=== PATIENT | female | born 1975 | race Caucasian/White ===

== ENCOUNTER 2017-02-21 08:08 | Emergency (ER) | payer SELFPAY ==
[~2017-02-21] VITALS: Ht 162.6 cm; Wt 97.5 kg
[2017-02-21 08:16] VITALS: BP 184/86
--- NOTE | 2017-02-21 08:41 | RAD ---
Indication: Elbow pain for one week, no known injury. Technique: 3 views of the right elbow are submitted for review. No comparison is available. Findings: There is no fracture or dislocation. There is no displacement of fat pads/joint effusion. There is no soft tissue swelling. Impression: Negative for fracture. If further workup is required or if the concern is for impingement, consider MRI.
[2017-02-21] MEDS ORDERED: MELO7.5T5 PO (09:08)
--- NOTE | 2017-02-21 09:16 | PHYS DOC ---
Past Medical History Past Medical History: GERD Past Surgical History: Appendectomy, Cholecystectomy, Tonsillectomy, Tubal ligation Alcohol Use: Occasionally Drug Use: None Adult General Chief Complaint Chief Complaint: UPPER EXTREMITY PAIN HPI HPI Patient is a 41 year old female who presents with right elbow pain. Patient states that she does not have any known injury. She does use her elbow at work with constant motion. She denies swelling, redness or signs of infection. She has taken some ibuprofen and Tylenol but it has not resolved. Review of Systems Review of Systems Constitutional: Denies fever or chills [] Respiratory: Denies cough or shortness of breath [] Cardiovascular: No additional information not addressed in HPI [] Musculoskeletal: Denies back pain or joint pain [] Integument: Denies rash or skin lesions [] Neurologic: Denies headache, focal weakness or sensory changes [] Endocrine: Denies polyuria or polydipsia [] All other systems were reviewed and found to be within normal limits, except as documented in this note. Allergies Allergies Allergies Coded Allergies Type Severity Reaction Last Updated Verified No Known Drug Allergies 02/10/15 No Physical Exam Physical Exam Constitutional: Well developed, well nourished, no acute distress, non-toxic appearance. [] Cardiovascular:Heart rate regular rhythm, no murmur [] Lungs & Thorax: Bilateral breath sounds clear to auscultation [] Skin: Warm, dry, no erythema, no rash. [] Back: No tenderness, no CVA tenderness. [] Extremities: Tenderness to right elbow, no cyanosis, no clubbing, ROM slightly limited due to pain to extension only, no edema, cyanosis and sensation are intact distally. [] Neurologic: Alert and oriented X 3, normal motor function, normal sensory function, no focal deficits noted. [] Psychologic: Affect normal, judgement normal, mood normal. [] Current Patient Data Vital Signs Vital Signs Date Time Temp Pulse Resp B/P (MAP) Pulse Ox O2 Delivery O2 Flow Rate FiO2 02/21/17 08:16 97.8 87 18 97 Room Air 97.8 EKG EKG [] Radiology/Procedures Radiology/Procedures []PATIENT: ANA MCALLISTER ACCOUNT: [id number] : 1975 LOCATION: ER AGE: 41 SEX: F EXAM STATUS: REG ER ORD. PHYSICIAN: ANNE MARIE CASTILLO APRN REASON: pain x 1 week, no known injury PROCEDURE: ELBOW RIGHT 3V Indication: Elbow pain for one week, no known injury. Technique: 3 views of the right elbow are submitted for review. No comparison is available. Findings: There is no fracture or dislocation. There is no displacement of fat pads/joint effusion. There is no soft tissue swelling. Impression: Negative for fracture. If further workup is required or if the concern is for impingement, consider MRI. DICTATED and SIGNED BY: KENA RUTLEDGE MD DATE: 02/21/17 0836 CC: ANNE MARIE CASTILLO APRN; NO PCP; NON,STAFF ~ Course & Med Decision Making Course & Med Decision Making Pertinent Labs and Imaging studies reviewed. (See chart for details) []1. Elbow pain Patient is been placed in an Juanito wrap. She was given instructions for epicondylitis. She has been placed on a prescription for Mobitz. She is to follow-up with PCP of her own choosing, return to the ED if worsening. Dragon Disclaimer Dragon Disclaimer This electronic medical record was generated, in whole or in part, using a voice recognition dictation system. Departure Departure Impression: Primary Impression: Right elbow pain Disposition: 01 HOME, SELF-CARE Condition: STABLE Patient Instructions: Epicondylitis, Lateral (Tennis Elbow) with Rehab- [facility] Additional Instructions: Please choose a primary care provider from the flyer provided to make an appointment for a follow-up in one week. Take the medication as directed. Please return to the ED if worsening. Scripts Meloxicam (MOBIC) 7.5 Mg Tablet 1 TAB PO DAILY, #30 TAB 1 Refill Prov: ANNE MARIE CASTILLO APRN 02/21/17 ANNE MARIE CASTILLO APRN Feb 21, 2017 09:16
== END 2017-02-21 09:00 | disposition home or self-care (01) ==
LOC: ER 08:08
DX: M25.521 Pain in right elbow (principal); K21.9 Gastro-esophageal reflux disease without esophagitis; Z90.49 Acquired absence of other specified parts of digestive tract
CPT/HCPCS: 73080; 99284

== ENCOUNTER 2018-02-23 18:38 | Emergency (ER) | payer SELFPAY ==
[~2018-02-23] VITALS: Ht 162.6 cm; Wt 106.6 kg
[~2018-02-23 18:38] MED LIST: MELO7.5T5 PO
[2018-02-23] MEDS ORDERED: MORPHINE SULFATE 4 MG/ML VIAL. IV ONE (19:00)
[2018-02-23] MEDS ORDERED: ASPIRIN CHEWABLE 81 MG TABLET. PO ONE (19:00)
[2018-02-23 19:02] LABS: BASO # 0.1 x10^3/uL (0.0-0.2); BASO % 1 % (0-3); EOS # 0.4 x10^3/uL (0.0-0.7); EOS % 3 % (0-3); HEMATOCRIT 38.5 % (36.0-47.0); HEMOGLOBIN 13.1 g/dL (12.0-15.5); LYMPH # 2.4 x10^3/uL (1.0-4.8); LYMPH % 20 % (24-48); MEAN CORPUSCULAR HEMOGLOBIN 28 pg (25-35); MEAN CORPUSCULAR HGB CONC 34 g/dL (31-37); MEAN CORPUSCULAR VOLUME 83 fL (79-100); MONO # 0.8 x10^3/uL (0.0-1.1); MONO % 7 % (0-9); NEUT # 8.1 x10^3uL (1.8-7.7); NEUT % 69 % (31-73); PLATELET COUNT 251 x10^3/uL (140-400); RED BLOOD COUNT 4.66 x10^6/uL (3.50-5.40); RED CELL DISTRIBUTION WIDTH 16.2 % (11.5-14.5); WHITE BLOOD COUNT 11.7 x10^3/uL (4.0-11.0)
[2018-02-23 19:12] LABS: CALCIUM 9.3 mg/dL (8.5-10.1); CREATININE 0.9 mg/dL (0.6-1.0); GFR 68.3; POTASSIUM 3.5 mmol/L (3.5-5.1)
--- NOTE | 2018-02-23 19:13 | RAD ---
PORTABLE CHEST 1V History: Mid sternal chest pain radiating to the right arm and neck, hypertension Comparison: None. Findings: There is no lobar infiltrate, pleural fluid, pneumothorax. Heart size is within normal limits given technique. Impression: 1. No acute radiographic abnormality is identified. Electronically signed by: Aníbal Hernandez MD (02/23/2018 7:09 PM) [facility]
[2018-02-23 19:34] LABS: PARTIAL THROMBOPLASTIN TIME 31 SEC (24-38); PROTHROMBIN TIME PATIENT 13.1 SEC (11.7-14.0)
[2018-02-23 19:37] LABS: D-DIMER < 0.27 ug/mlFEU (0.00-0.50)
[2018-02-23] MEDS ORDERED: IPRATRPIUM/ALBUTEROL 0.5/2.5MG 3 ML NEBU. ONE (20:11)
--- NOTE | 2018-02-23 20:11 | PHYS DOC ---
Past Medical History Past Medical History: GERD Past Surgical History: Appendectomy, Cholecystectomy, Tonsillectomy, Tubal ligation Alcohol Use: Occasionally Drug Use: None Adult General Chief Complaint Chief Complaint: CHEST PAIN HPI HPI Patient is a 42 year old female who presents with chest pain. Patient has been having chest pain over the last 2 weeks. The pain is been constant but has waxed and waned in intensity. She states the pain is somewhat improved when she lies flat. She has mild shortness of breath associated with the pain. Pain is nonradiating. She does not have a personal history of coronary artery disease but does have significant family history including in her father, older brother , and younger brother. The patient has a [id number] history of tobacco abuse. She denies prior history of respiratory or lung diagnoses. She came to the emergency department today because the pain became more severe and lasted longer compared to last 2 weeks. Review of Systems Review of Systems Constitutional: Denies fever or chills [] Eyes: Denies change in visual acuity, redness, or eye pain [] HENT: Denies nasal congestion or sore throat [] Respiratory: Denies cough or shortness of breath [] Cardiovascular: No additional information not addressed in HPI [] GI: Denies abdominal pain, nausea, vomiting, bloody stools or diarrhea [] : Denies dysuria or hematuria [] Musculoskeletal: Denies back pain or joint pain [] Integument: Denies rash or skin lesions [] Neurologic: Denies headache, focal weakness or sensory changes [] Endocrine: Denies polyuria or polydipsia [] All other systems were reviewed and found to be within normal limits, except as documented in this note. Current Medications Current Medications Current Medications Medications (Trade) Dose Ordered Sig/Kathy Start Time Stop Time Status Last Admin Dose Admin Albuterol/ Ipratropium (Duoneb) 3 ml STK-MED ONCE 02/23/18 20:11 02/23/18 20:13 DC Aspirin (Children'S Aspirin) 324 mg 1X ONCE 02/23/18 19:00 02/23/18 19:01 DC 02/23/18 19:06 324 MG Morphine Sulfate (Morphine Sulfate) 4 mg 1X ONCE 02/23/18 19:00 02/23/18 19:01 DC 02/23/18 19:06 4 MG Prednisone (Prednisone) 60 mg 1X ONCE 02/23/18 20:15 02/23/18 20:16 DC 02/23/18 20:18 60 MG Allergies Allergies Allergies Coded Allergies Type Severity Reaction Last Updated Verified No Known Drug Allergies 02/23/18 No Physical Exam Physical Exam Constitutional: Well developed, well nourished, no acute distress, non-toxic appearance HENT: Normocephalic, atraumatic, bilateral external ears normal, oropharynx moist Eyes: PERRLA, EOMI, conjunctiva normal Neck: Normal range of motion Cardiovascular:Heart rate regular rhythm, no murmur Lungs & Thorax: Bilateral breath sounds with wheezes bilaterally and mildly prolonged expiratory phase Abdomen: Bowel sounds normal, soft, no tenderness Skin: Warm, dry Back: No tenderness Extremities: No tenderness, no edema Neurologic: Alert and oriented X 3 Psychologic: Affect normal Current Patient Data Vital Signs Vital Signs Date Time Temp Pulse Resp B/P (MAP) Pulse Ox O2 Delivery O2 Flow Rate FiO2 02/23/18 20:17 98 Room Air 02/23/18 20:15 64 13 108/51 (70) 02/23/18 18:40 98.5 98.5 Lab Values Laboratory Tests Test 02/23/18 18:48 White Blood Count 11.7 x10^3/uL (4.0-11.0) H Red Blood Count 4.66 x10^6/uL (3.50-5.40) Hemoglobin 13.1 g/dL (12.0-15.5) Hematocrit 38.5 % (36.0-47.0) Mean Corpuscular Volume 83 fL (79-100) Mean Corpuscular Hemoglobin 28 pg (25-35) Mean Corpuscular Hemoglobin Concent 34 g/dL (31-37) Red Cell Distribution Width 16.2 % (11.5-14.5) H Platelet Count 251 x10^3/uL (140-400) Neutrophils (%) (Auto) 69 % (31-73) Lymphocytes (%) (Auto) 20 % (24-48) L Monocytes (%) (Auto) 7 % (0-9) Eosinophils (%) (Auto) 3 % (0-3) Basophils (%) (Auto) 1 % (0-3) Neutrophils # (Auto) 8.1 x10^3uL (1.8-7.7) H Lymphocytes # (Auto) 2.4 x10^3/uL (1.0-4.8) Monocytes # (Auto) 0.8 x10^3/uL (0.0-1.1) Eosinophils # (Auto) 0.4 x10^3/uL (0.0-0.7) Basophils # (Auto) 0.1 x10^3/uL (0.0-0.2) Prothrombin Time 13.1 SEC (11.7-14.0) Prothrombin Time INR 1.0 (0.8-1.1) PTT 31 SEC (24-38) D-Dimer (Damaris) < 0.27 ug/mlFEU Sodium Level 140 mmol/L (136-145) Potassium Level 3.5 mmol/L (3.5-5.1) Chloride Level 101 mmol/L (98-107) Carbon Dioxide Level 29 mmol/L (21-32) Anion Gap 10 (6-14) Blood Urea Nitrogen 9 mg/dL (7-20) Creatinine 0.9 mg/dL (0.6-1.0) Estimated GFR (Cockcroft-Gault) 68.3 Glucose Level 215 mg/dL (70-99) H Calcium Level 9.3 mg/dL (8.5-10.1) Troponin I Quantitative < 0.017 ng/mL (0.000-0.055) NE-Txo-T-Type Natriuretic Peptide 68 pg/mL (0-124) Laboratory Tests 02/23/18 18:48 Laboratory Tests 02/23/18 18:48 EKG EKG No STEMI Interpretation Time: 18:45 Radiology/Procedures Radiology/Procedures CXR: No acute findings. Course & Med Decision Making Course & Med Decision Making Pertinent Labs and Imaging studies reviewed. (See chart for details) Patient is seen and examined immediately on arrival to her room. She is currently having mild chest pain symptoms. She is noted to have wheezes in all espinoza during the exam but no increased work of breathing. DuoNeb is ordered along with cardiac workup. HEART: - slightly suspicious (0) - EKG normal: (0) - obesity, smoker, family hx, (2) - troponin normal limit: (0) Total score: 2. 20:40: Patient is re-examined. Pain sx improved. Duoneb pending. 20:50: Lungs are clear. Patient is feeling improved. Plan is for discharge home. She has been having pain for 3 weeks. Her heart score is only 2. She is provided the follow-up information for cardiology locally and advised follow-up as needed or return to the ER for any new or worsening symptoms. Ting Disclaimer Ting Disclaimer This electronic medical record was generated, in whole or in part, using a voice recognition dictation system. Departure Departure Disposition: HOME, SELF-CARE Condition: GOOD Referrals: NO PCP (PCP) Scripts Albuterol Sulfate (PROAIR HFA INHALER) 8.5 Gm Hfa.aer.ad 2 PUFF INH Q4H PRN for SHORTNESS OF BREATH, #1 INHALER 0 Refills Prov: LOPEZ BURNETT DO 02/23/18 Prednisone (PREDNISONE) 50 Mg Tablet 1 TAB PO DAILY, #5 TAB Prov: LOPEZ BURNETT DO 02/23/18 LOPEZ BURNETT DO Feb 23, 2018 20:11
[2018-02-23] MEDS ORDERED: predniSONE 20 MG TABLET PO ONE (20:15)
[2018-02-23] MEDS ORDERED: IPRATRPIUM/ALBUTEROL 0.5/2.5MG 3 ML NEBU. NEB ONE (20:15)
[2018-02-23] MEDS ORDERED: PROAIR HFA8.5 GM INH (20:54)
[2018-02-23] MEDS ORDERED: PRED50TA PO (20:54)
[2018-02-23 21:02] VITALS: BP 116/56
--- NOTE | 2018-02-24 07:37 | EKG ---
[facility] [address] [place] [address] Test Date: 2018-02-23 Test Time: 18:43:15 Pat Name: ANA MCALLISTER Department: Room: Gender: F Tile Layer Helper: : 1975 Requested By: LOPEZ BURNETT Order Number: [id number] Reading MD: Measurements Intervals [place] Rate: 96 P: 43 IN: 178 QRS: 65 QRSD: 78 T: 18 QT: 332 QTc: 426 Interpretive Statements SINUS RHYTHM NORMAL ECG RI6.01 No previous ECG available for comparison
== END 2018-02-23 21:09 | disposition home or self-care (01) ==
LOC: ER 18:38
DX: R07.89 Other chest pain (principal); R06.02 Shortness of breath; R06.2 Wheezing; K21.9 Gastro-esophageal reflux disease without esophagitis; Z90.89 Acquired absence of other organs; Z90.49 Acquired absence of other specified parts of digestive tract; Z98.51 Tubal ligation status; Z87.891 Personal history of nicotine dependence
CPT/HCPCS: 36415; 71045; 80048; 83880; 84484; 85025; 85379; 85610; 85730; 93005; 94640; 96374; 99284; J2270; J7512; J7620

== ENCOUNTER 2019-05-02 17:49 | Emergency (ER) | payer BC ==
[~2019-05-02] VITALS: Ht 162.6 cm; Wt 95.4 kg
[~2019-05-02 17:49] MED LIST changes: +ALBU2.5V8 INH; +PRED50TA PO
--- NOTE | 2019-05-02 19:16 | RAD ---
PROCEDURE: FOOT RIGHT 3V STUDY DATE: 05/02/19 CLINICAL INDICATION / HISTORY: pain. TECHNIQUE: AP, lateral and oblique views of the right foot. COMPARISON: none FINDINGS: No fracture or dislocation is identified. The bone density is normal. The joint space widths are maintained, and there are no erosions to suggest an inflammatory arthropathy. No soft tissue abnormality is seen. IMPRESSION: No acute osseous abnormality. Electronically signed by: Lisa John MD (05/02/2019 7:13 PM) [facility]
--- NOTE | 2019-05-02 19:22 | PHYS DOC ---
Past Medical History Past Medical History: GERD (TRENT BUSH APRN) Past Surgical History: Appendectomy, Cholecystectomy, Tonsillectomy, Tubal ligation (TRENT BUSH APRN) Smoking Status: Current Every Day Smoker Alcohol Use: Occasionally Drug Use: None (TRENT BUSH APRN) Attending Signature I have participated in the care of this patient and I have reviewed and agree with all pertinent clinical information above including history, exam, and recommendations. (RANJITH SARAVIA MD) Adult General Chief Complaint Chief Complaint: FOOT INJURY PAIN HPI HPI Patient is a 43 year old female, accompanied by a friend, who presents to the emergency department with complaints of swelling and pain in her right foot or the last 3 days. Patient denies any known injury, she denies any recent fall or twisting of the extremity. She reports that the pain increases with weightbearing. Patient states that she stands on her feet all day at work. She reports that she has been able to bear weight, however that increases her pain. She denies any numbness, tingling, or weakness of the affected extremity. She denies any pain at rest. She states that the pain shoots to 8 out of 10 when she stands, the only thing that has helped the pain is to not bear weight. (TRENT BUSH APRN) Review of Systems Review of Systems Complete ROS is negative unless otherwise noted in HPI. (TRENT BUSH APRN) Allergies Allergies Allergies Coded Allergies Type Severity Reaction Last Updated Verified No Known Drug Allergies 02/23/18 No (RANJITH SARAVIA MD) Physical Exam Physical Exam See Above Constitutional: Well developed, well nourished, no acute distress, non-toxic appearance. [] HENT: Normocephalic, atraumatic, bilateral external ears normal, nose normal. [] Eyes: PERRLA, EOMI, conjunctiva normal, no discharge. [] Neck: Normal range of motion, no stridor. [] Cardiovascular:Heart rate regular rhythm Lungs & Thorax: Respirations even and unlabored, no retractions, no respiratory distress Skin: Warm, dry, no erythema, no rash. Extremities: RLE: No crepitus, R posterior foot TTP, no obvious deformity, no cyanosis, no clubbing, ROM intact, no edema, PMS intact. [] Neurologic: Alert and oriented X 3, no focal deficits noted. [] Psychologic: Affect normal, judgement normal, mood normal. [] (TRENT BUSH APRN) Current Patient Data Vital Signs Vital Signs Date Time Temp Pulse Resp B/P (MAP) Pulse Ox O2 Delivery O2 Flow Rate FiO2 05/02/19 18:31 98.3 81 18 168/89 (115) 96 Room Air 98.3 (RANJITH SARAVIA MD) EKG EKG [] (TRENT BUSH APRN) Radiology/Procedures Radiology/Procedures PROCEDURE: FOOT RIGHT 3V PROCEDURE: FOOT RIGHT 3V STUDY DATE: 05/02/19 CLINICAL INDICATION / HISTORY: pain. TECHNIQUE: AP, lateral and oblique views of the right foot. COMPARISON: none FINDINGS: No fracture or dislocation is identified. The bone density is normal. The joint space widths are maintained, and there are no erosions to suggest an inflammatory arthropathy. No soft tissue abnormality is seen. IMPRESSION: No acute osseous abnormality.[] (TRENT BUSH APRN) Course & Med Decision Making Course & Med Decision Making Pertinent Labs and Imaging studies reviewed. (See chart for details) [] (TRENT BUSH APRN) Dragon Disclaimer Dragon Disclaimer This electronic medical record was generated, in whole or in part, using a voice recognition dictation system. (TRENT BUSH APRN) Departure Departure Impression: Primary Impression: Acute pain of right foot Disposition: 01 HOME, SELF-CARE Condition: STABLE Referrals: NO PCP (PCP) Patient Instructions: Foot Sprain-Brief Additional Instructions: Tylenol or ibuprofen as needed for pain. Recommend application of ice, elevation, and rest of affected extremity. Wear the vani wrap that was applied as needed for comfort. Follow up with your primary care doctor if symptoms persist, return to the ER if your symptoms worsen. Splinting Splinting : Location: R ankle/foot Pre-Made Type: vani wrap Pre-Proc Neuro Vasc Exam: normal Post-Proc Neuro Vasc Exam: normal, unchanged from pre-exam (TRENT BUSH APRN) TRENT BUSH APRN May 02, 2019 19:22 RANJITH SARAVIA MD May 04, 2019 05:36
== END 2019-05-02 19:49 | disposition home or self-care (01) ==
LOC: ER 17:49
DX: M79.671 Pain in right foot (principal); K21.9 Gastro-esophageal reflux disease without esophagitis; F17.200 Nicotine dependence, unspecified, uncomplicated
CPT/HCPCS: 73630; 99283

== ENCOUNTER 2020-03-25 10:04 | Emergency (ER) | payer SELFPAY ==
[~2020-03-25] VITALS: Ht 162.6 cm; Wt 118.0 kg
[2020-03-25 10:17] VITALS: BP 181/87
--- NOTE | 2020-03-25 10:23 | ED.ADGEN ---
Past Medical History Past Medical History: GERD Past Surgical History: Appendectomy, Cholecystectomy, Tonsillectomy, Tubal ligation Smoking Status: Current Every Day Smoker Alcohol Use: Occasionally Drug Use: None General Adult EDM: Chief Complaint: SORE THROAT HPI: HPI: Patient is a 44 year old female who presents emergency department with complaints of a sore throat for the last week and a half. She denies any difficulty speaking or swallowing. Patient states it is very painful when she swallows. She denies any fever, ear pain, shortness of breath, wheezing, cough, body aches, fatigue, headache, abdominal pain, nausea, vomiting, or diarrhea. She currently rates pain a 10 out of 10 on the pain scale, she denies any alleviating factors. Review of Systems: Review of Systems: Complete ROS is negative unless otherwise noted in HPI. Allergies: Allergies: Allergies Coded Allergies Type Severity Reaction Last Updated Verified No Known Drug Allergies 02/23/18 No Physical Exam: PE: See Above Constitutional: Well developed, well nourished, no acute distress, non-toxic appearance. [] HENT: Normocephalic, atraumatic, bilateral external ears normal, nose normal; erythema of posterior pharynx noted, no exudate, no tonsils. Eyes: PERRLA, EOMI, conjunctiva normal, no discharge. [] Neck: Normal range of motion, supple, no stridor. [] Cardiovascular:Heart rate regular rhythm Lungs & Thorax: Respirations even and unlabored, no retractions, no respiratory distress Skin: Warm, dry, no erythema, no rash. [] Extremities: No cyanosis, ROM intact, no edema. [] Neurologic: Alert and oriented X 3, no focal deficits noted. [] Psychologic: Affect normal, judgement normal, mood normal. [] Current Patient Data: Vital Signs: Vital Signs Date Time Temp Pulse Resp B/P (MAP) Pulse Ox O2 Delivery O2 Flow Rate FiO2 03/25/20 10:17 97.9 79 18 181/87 (118) 96 Room Air 97.9 EKG: EKG: [] Heart Score: Risk Factors: Risk Factors: DM, Current or recent (<one month) smoker, HTN, HLP, family history of CAD, obesity. Risk Scores: Score 0 - 3: 2.5% MACE over next 6 weeks - Discharge Home Score 4 - 6: 20.3% MACE over next 6 weeks - Admit for Clinical Observation Score 7 - 10: 72.7% MACE over next 6 weeks - Early Invasive Strategies Radiology/Procedures: Radiology/Procedures: [] Course & Med Decision Making: Course & Med Decision Making Pertinent Labs and Imaging studies reviewed. (See chart for details) Rapid strep is negative. Prescription written for Medrol Dosepak. Patient was encouraged to do warm salt water gargles, take Tylenol and ibuprofen as needed for pain. Follow-up with primary care doctor if symptoms persist, return to the ER symptoms worsen. Also encouraged the patient to stop smoking. Patient verbalized an understanding of home care, medications, follow-up, and return to ED instructions and was in agreement with the plan of care. [] Dragon Disclaimer: Dragon Disclaimer: This electronic medical record was generated, in whole or in part, using a voice recognition dictation system. Departure Departure Impression: Primary Impression: Acute pharyngitis Disposition: 01 DC HOME SELF CARE/HOMELESS Condition: STABLE Referrals: NO PCP (PCP) Patient Instructions: Viral and Bacterial Pharyngitis, [id number] Additional Instructions: Fill prescription and use as directed. Recommend warm salt water gargles as needed for relief of discomfort. Alternate Tylenol and ibuprofen as needed for fever/pain. Follow-up with primary care doctor if symptoms persist. Return to the ER if symptoms worsen. [facility] [address] [place] [address] [facility] [address] [place] [address] [facility] [address] [place] [address] [facility] [address] [place] [address] [facility] [address] [place] [address] [facility] [address] [place] [address] [facility] [address] [place] [address] [facility] [address] [place] [address] [facility] [address] [place] [address] [facility] [address] [place] [address] Scripts Methylprednisolone (MEDROL) 4 Mg Tab.ds.pk 1 PKG PO UD for 6 Days, #1 PKG 0 Refills Prov: TRENT BUSH PRIVATE ADVISOR 03/25/20 Problem Qualifiers Primary Impression: Acute pharyngitis Pharyngitis/tonsillitis etiology: unspecified etiology Qualified Codes: J02.9 - Acute pharyngitis, unspecified TRENT BUSH PRIVATE ADVISOR Mar 25, 2020 10:23
[2020-03-25] MEDS ORDERED: METH4TAB2 PO (11:03)
== END 2020-03-25 11:31 | disposition home or self-care (01) ==
LOC: ER 10:04
DX: J02.9 Acute pharyngitis, unspecified (principal); L53.9 Erythematous condition, unspecified; K21.9 Gastro-esophageal reflux disease without esophagitis; F17.200 Nicotine dependence, unspecified, uncomplicated; Z90.89 Acquired absence of other organs; Z90.49 Acquired absence of other specified parts of digestive tract; Z98.51 Tubal ligation status
CPT/HCPCS: 87070; 87880; 99283

== ENCOUNTER 2020-08-08 06:40 | Emergency (ER) | payer SELFPAY ==
[~2020-08-08] VITALS: Ht 162.6 cm; Wt 111.3 kg
[~2020-08-08 06:40] MED LIST changes: +METH4TAB2 PO
--- NOTE | 2020-08-08 07:25 | PHYS DOC ---
Past Medical History Past Medical History: GERD Past Surgical History: Appendectomy, Cholecystectomy, Tonsillectomy, Tubal ligation Smoking Status: Current Every Day Smoker Alcohol Use: Occasionally Drug Use: None General Adult EDM: Chief Complaint: MECHANICAL FALL HPI: HPI: 44-year-old female past medical history of tobacco dependence/copd, takes no routine medications/no anticoagulants, presents to the ED with complaints of left lower anterior rib pain that started after patient fell forward on Tuesday while taking her dog out. Patient reports her dog saw another dog while she was holding the leash with her left hand and her dog lunged forward. Patient landed forward on her left side, rolled her ankle, bruised her left wrist and landed on her left lower ribs. 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 NKDA. Was not intoxicated/under the influence of any alcohol or drugs during initial injury. Tetanus is UTD. Review of Systems: Review of Systems: Constitutional: Denies fever or chills. [] Eyes: Denies change in visual acuity. [] HENT: Denies nasal congestion or sore throat. [] Respiratory: Denies persistent cough or shortness of breath or hemoptysis Cardiovascular: Denies chest pain or edema or syncope GI: Denies abdominal pain, nausea, vomiting, bloody stools or diarrhea. [] : Denies dysuriaor hematuria or vaginal bleeding Musculoskeletal: Denies midline back pain or joint pain or radiculopathy or saddle anesthesia Integument: Denies rash or diaphoresis Neurologic: Denies headache, midline neck pain, focal weakness or sensory changes. [] Endocrine: Denies polyuria or polydipsia. [] Lymphatic: Denies swollen glands. [] Psychiatric: Denies depression or anxiety. [] Heart Score: C/O Chest Pain: No Risk Factors: Risk Factors: DM, Current or recent (<one month) smoker, HTN, HLP, family history of CAD, obesity. Risk Scores: Score 0 - 3: 2.5% MACE over next 6 weeks - Discharge Home Score 4 - 6: 20.3% MACE over next 6 weeks - Admit for Clinical Observation Score 7 - 10: 72.7% MACE over next 6 weeks - Early Invasive Strategies Allergies: Allergies: Allergies Coded Allergies Type Severity Reaction Last Updated Verified No Known Drug Allergies 02/23/18 No Physical Exam: PE: Constitutional: Well developed, well nourished, no acute distress, non-toxic a ppearance, hypertensive-takes no meds HENT: Normocephalic, atraumatic, no midline neck pain Eyes: EOMI, conjunctiva normal, no discharge. Neck: Normal range of motion, supple, Cardiovascular: S1/2 present, regular rhythm Lungs & Thorax: Speaking in full sentences, bilateral equal chest rise, no tachypnea or increased work of breathing, splinting/in discomfort with deep breaths/dry cough, no subcutaneous emphysema or flail chest Abdomen: soft, no tenderness, Skin: Warm, dry, no erythema, no rash, no petechiae or bruising Back: No midline tenderness or step offs, no CVA tenderness. [] Extremities: No tenderness, no cyanosis, no lower extremity edema, normal ankle exams bl Neurologic: Alert and oriented X 3, normal motor function, normal sensory function, no focal deficits noted. [] Psychologic: Affect normal, judgement normal, mood normal. [] EKG: EKG: [] Radiology/Procedures: Radiology/Procedures: IMAGING REPORT Signed PATIENT: ANA WATSON ACCOUNT: [id number] : 1975 LOCATION: ER AGE: 44 SEX: F EXAM STATUS: REG ER ORD. PHYSICIAN: ANA JEREZ DO REASON: left anterior lower rib pain s/p blunt injjury on tuesday PROCEDURE: CT CHEST WO CONTRAST CT THORAX WO INDICATION: left anterior lower rib pain s/p blunt injury on tuesday COMPARISON STUDY: None. TECHNIQUE: Unenhanced axial images were obtained through the lungs and upper abdomen. Coronal and sagittal multiplanar reconstructions were also obtained. PQRS compliance statement: One or more of the following individualized dose reduction techniques were utilized for this examination: 1. Automated exposure control 2. Adjustment of the mA and/or kV according to patient size 3. Use of iterative reconstruction technique FINDINGS: Lungs and Airways: No pulmonary mass or consolidation. Normal central airways. Pleura: The pleural spaces are normal. Heart and Mediastinum: Thyroid isthmus 2 cm nodule. No axillary or supraclavicular lymphadenopathy. No mediastinal, hilar or retrocrural lymphadenopathy. The heart and pericardium are within normal limits. The great vessels of the thorax are normal. Abdomen: Cholecystectomy. Nonobstructive 3 mm renal calculus. Bones and Soft Tissues: The visualized skeletal structures and soft tissues of the chest wall are within normal limits. IMPRESSION: 1. No acute fracture. No traumatic mediastinal or lung injury. 2. Thyroid isthmus 2 cm nodule can be further evaluated with thyroid ultrasound if not performed previously. 3. Nonobstructive right renal 3 mm calculus. Electronically signed by: Satnam Umana MD (08/08/2020 8:20 AM) [id number] DICTATED and SIGNED BY: SATNAM UMANA MD DATE: 08/08/20 [id number] 0 Course & Med Decision Making: Course & Med Decision Making Pertinent Labs and Imaging studies reviewed. (See chart for details) Concern for asymptomatic hypertension in the setting of pain/rib contusions. Incidental finding of hyperglycemia-pt informed on concern for diabetes and need for urgent repeat testing w/pcp. Will discharge home with strict ED return precautions were given for tractable nausea or vomiting, chest pain, hemoptysis or pressure, syncope neurologic deficits. Encouraged urgent outpatient follow-up with PMD in 24 to 48 hours for reevaluation, blood pressure and diabetes management. Life-threatening processes were considered but are low suspicion at this time, given history, physical exam and ED workup. Pt was educated on all prescription medications and adverse effects. All patient's questions were answered and pt was stable at time of discharge. Life/limb-threatening differential includes but is not limited to, intracranial hemorrhage, diffuse axonal injury, spinal cord syndrome, unstable cervical fracture or SCIWORA, fractures or joint dislocations, neurovascular injuries, organ injury or laceration, pneumothorax, pneumoperitoneum, pericardial tamponade, unstable pelvic fracture, compartment syndrome, flail chest or respiratory distress, burn injury or asphyxiation I spoken with the patient and her caregivers. I explained the patient's condition, diagnoses and treatment plan based on the information available to me at this time. I have answered the patient and her caregiver's questions and addressed any concerns. The patient and her caregivers have a good understanding of patient's diagnosis, condition and treatment plan as can be expected at this point. Vital signs have been stable. Patient's condition is stable and appropriate for discharge from the emergency department. Patient will pursue further outpatient evaluation with primary care physician or other designated or consulting physician as outlined in the discharge inst ructions. The patient and/or caregivers are agreeable to this plan of care and follow-up instructions have been explained in detail. The patient and/or caregivers have received these instructions in written form and have expressed an understanding of the discharge instructions. The patient and/or caregivers are aware that any significant change of condition or worsening of symptoms should prompt immediate return to this or the closest emergency department or call to 911. Ting Disclaimer: Ting Disclaimer: This electronic medical record was generated, in whole or in part, using a voice recognition dictation system. Departure Departure Impression: Primary Impression: Uncontrolled hypertension Additional Impressions: Hyperglycemia Contusion of rib on left side Disposition: 01 HOME / SELF CARE / HOMELESS Condition: STABLE Referrals: NO PCP (PCP) Follow-up with your pcp in 24-48 hours for reevaluation, diabetes and blood pressure management Patient Instructions: Diabetes, FAQs, Hypertension, Rib Contusion Additional Instructions: Is unable to follow-up with your primary care physician call for appt at: FOLLOW UP WITH FAMILY MEDICINE: [address], [address] [place] [address] EMERGENCY DEPARTMENT GENERAL DISCHARGE INSTRUCTIONS Thank you for coming to [facility] Emergency Department (ED) today and trusting us with you care. We trust that you had a positive experience in our Emergency Department. If you wish to speak to the department management, you may call the Director at [phone]. YOUR FOLLOW UP INSTRUCTIONS ARE FOLLOWS: 1. Do you have a private Doctor? If you do not have a private doctor, please ask for a resource list of physicians or clinics that may be able to assist you with follow up care. 2. The Emergency Physicain has interpreted your x-rays. The X-Ray specialist will also review them. If there is a change in the findings, you will be notified in 48 hours when at all possible. 3. A lab test or culture has been done, your results will be reviewed and you will be notified if you need a change in treatment. ADDITIONAL INSTRUCTIONS AND INFORMATION: 1. Your care today has been supervised by a physician who is specially trained in emergency care. Many problems require more than one evaluation for a complete diagnosis and treatment. We recommend that you schedule your follow up appointment as recommended to ensure complete treatment of you illness or injury. If you are unable to obtain follow up care and continue to have a problem, or if your condition worsens, we recommend that you return to the ED. 2. We are not able to safely determine your condition over the phone nor are we able to give sound medical advice over the phone. For these safety reasons, if you call for medical advice we will ask you to come to the ED for further evaluation. 3. If you have any questions regarding these discharge instructions please call the ED at [phone]. SAFETY INFORMATION: In the interest of safety, wellness, and injury prevention; we encourage you to wear your sealbelt, if you smoke; quite smoking, and we encourage family to use a protective helmet for bicycling and other sporting events that present an increased risk for head injury. IF YOUR SYMPTOMS WORSEN OR NEW SYMPTOMS DEVELOP, OR YOU HAVE CONCERNS ABOUT YOUR CONDITION; OR IF YOUR CONDITION WORSENS WHILE YOU ARE WAITING FOR YOUR FOLLOW UP APPOINTMENT; EITHER CONTACT YOUR PRIMARY CARE DOCTOR, THE PHYSICIAN WHOSE NAME AND NUMBER YOU WERE GIVEN, OR RETURN TO THE ED IMMEDIATELY. Scripts Hydrocodone Bit/Acetaminophen (HYDROCODONE-APAP 5-325 ) 1 Tab Tablet 1 TAB PO PRN Q6HRS PRN for PAIN for 2 Days, #8 TAB 0 Refills Avoid alcohol, driving or operating heavy machinery with this medication, this medication causes constipation and can be addictive Prov: ANA JEREZ DO 08/08/20 Lidocaine (Lido Devin) 1 Each Adh..patch 1 EACH TP DAILY for 5 Days, #5 PATCH Apply 1 patch for 12 hours, remove for another 12 hours. May repeat, 1 patch per day as instructed above. Prov: ANA JEREZ DO 08/08/20 ANA JEREZ DO August 08, 2020 07:25
[2020-08-08 08:00] VITALS: BP 196/86
[2020-08-08] MEDS: LIDOCAINE (700MG/PATCH) PATCH. TD SCH (08:02)
[2020-08-08 08:03] LABS: CALCIUM 9.2 mg/dL (8.5-10.1); CREATININE 0.7 mg/dL (0.6-1.0); GFR 90.5; POTASSIUM 3.5 mmol/L (3.5-5.1)
--- NOTE | 2020-08-08 08:23 | RAD ---
CT THORAX WO INDICATION: left anterior lower rib pain s/p blunt injury on tuesday COMPARISON STUDY: None. TECHNIQUE: Unenhanced axial images were obtained through the lungs and upper abdomen. Coronal and sa gittal multiplanar reconstructions were also obtained. PQRS compliance statement: One or more of the following individualized dose reduction techniques were utilized for this examinat ion: 1. Automated exposure control 2. Adjustment of the mA and/or kV according to patient size 3. Use of iterative reconstruction technique FINDINGS: Lungs and Airways: No pulmonary mass or consolidation. Normal central airways. Pleura: The pleural spaces are normal. Heart and Mediastinum: Thyroid isthmus 2 cm nodule. No axillary or supraclavicular lymphadenopathy. N o mediastinal, hilar or retrocrural lymphadenopathy. The heart and pericardium are within normal limi ts. The great vessels of the thorax are normal. Abdomen: Cholecystectomy. Nonobstructive 3 mm renal calculus. Bones and Soft Tissues: The visualized skeletal structures and soft tissues of the chest wall are wit hin normal limits. IMPRESSION: 1. No acute fracture. No traumatic mediastinal or lung injury. 2. Thyroid isthmus 2 cm nodule can be further evaluated with thyroid ultrasound if not performed prev iously. 3. Nonobstructive right renal 3 mm calculus. Electronically signed by: Aníbal Dutta MD (08/08/2020 8:20 AM) [id number]
[2020-08-08] MEDS ORDERED: LIDO1ADH78 TP (08:40)
[2020-08-08] MEDS ORDERED: HYDR-2761 PO (08:40)
== END 2020-08-08 08:59 | disposition home or self-care (01) ==
LOC: ER 06:40
DX: S20.212A Contusion of left front wall of thorax, initial encounter (principal); I10 Essential (primary) hypertension; E11.65 Type 2 diabetes mellitus with hyperglycemia; W18.39XA Other fall on same level, initial encounter; Y93.89 Activity, other specified; Y92.89 Other specified places as the place of occurrence of the external cause; Y99.8 Other external cause status; K21.9 Gastro-esophageal reflux disease without esophagitis; F17.200 Nicotine dependence, unspecified, uncomplicated
CPT/HCPCS: 36415; 71250; 80048; 99284

== ENCOUNTER 2020-12-30 08:12 | Emergency (ER) | payer SELFPAY ==
[~2020-12-30] VITALS: Ht 162.6 cm; Wt 97.2 kg
[~2020-12-30 08:12] MED LIST changes: +HYDR-2761 PO; +LIDO1ADH78 TP
[2020-12-30 08:42] VITALS: BP 132/60
[2020-12-30] MEDS ORDERED: CYCL10TA2 PO (09:04)
[2020-12-30] MEDS ORDERED: LIDO1ADH63 TP (09:04)
--- NOTE | 2020-12-30 09:05 | PHYS DOC ---
Past Medical History Past Medical History: GERD Past Surgical History: Appendectomy, Cholecystectomy, Tonsillectomy, Tubal ligation Smoking Status: Current Every Day Smoker Additional Information: 0.5 PPD Alcohol Use: Occasionally Drug Use: None General Adult EDM: Chief Complaint: LOWER BACK PAIN OR INJURY HPI: HPI: Patient is a 45 year old female who presents with right-sided low back pain. Symptoms began a few days ago. The pain is worse with movement and bending. No radiation of pain. No lower extremity pain. No numbness, tingling, or motor weakness. No urinary symptoms reported. No abdominal pain. No fever or chills. No stool or urine incontinence reported. No fall, trauma or specific injury. She does perform housekeeping duties at work. She called into work this morning and is requesting a work note for today. She has a previous history of some back pain issues, but no reported chronic back pain. No previous known specific back injury or spine injury. She has taken [id number] medication with little relief. Review of Systems: Review of Systems: Constitutional: Denies fever or chills. [] Eyes: Denies change in visual acuity. [] HENT: Denies nasal congestion or sore throat. [] Respiratory: Denies cough or shortness of breath. [] Cardiovascular: Denies chest pain or edema. [] GI: Denies abdominal pain, nausea, vomiting, bloody stools or diarrhea. Denies incontinence. : Denies any urinary symptoms. Denies incontinence. Musculoskeletal: Ports right-sided low back pain. Denies joint pain or swelling. Integument: Denies rash. [] Neurologic: Denies headache, focal weakness or sensory changes. [] Psychiatric: Denies depression or anxiety. [] Heart Score: C/O Chest Pain: No Risk Factors: Risk Factors: DM, Current or recent (<one month) smoker, HTN, HLP, family history of CAD, obesity. Risk Scores: Score 0 - 3: 2.5% MACE over next 6 weeks - Discharge Home Score 4 - 6: 20.3% MACE over next 6 weeks - Admit for Clinical Observation Score 7 - 10: 72.7% MACE over next 6 weeks - Early Invasive Strategies Allergies: Allergies: Allergies Coded Allergies Type Severity Reaction Last Updated Verified No Known Drug Allergies 02/23/18 No Physical Exam: PE: Constitutional: Well developed, well nourished, no acute distress, non-toxic appearance. [] HENT: Normocephalic, atraumatic Eyes: Sclera are clear and nonicteric, no discharge. [] Neck: Trachea is midline Cardiovascular: No peripheral edema, well-perfused appearing. +2 posterior tibial pulses and radial pulses bilaterally. Lungs & Thorax: Respirations are nonlabored. Abdomen: Bowel sounds normal, soft, no tenderness, no CVA tenderness. Skin: Warm, dry, no erythema, no rash. [] Back: No midline tenderness or step-offs. No deformity. Right-sided lumbar paraspinal muscle soft tissue tenderness noted. Pain is reproduced with forward bending/flexion of the lumbar spine. Pelvis is stable. Extremities: No tenderness, no cyanosis, no clubbing, ROM intact, no edema. No calf tenderness. Neurologic: Alert and oriented X 3, normal motor function, normal sensory function, no focal deficits noted. 5 out of 5 motor strength bilateral lower extremities. DTRs 2 out of 4 bilateral lower extremities. No foot drop. Psychologic: Affect normal, judgement normal, mood normal. [] Current Patient Data: Vital Signs: Vital Signs Date Time Temp Pulse Resp B/P (MAP) Pulse Ox O2 Delivery O2 Flow Rate FiO2 12/30/20 08:42 98.3 65 19 132/60 (84) 95 Room Air 98.3 EKG: EKG: [] Radiology/Procedures: Radiology/Procedures: [] Course & Med Decision Making: Course & Med Decision Making IM Toradol and lidocaine patch ordered for here. No current indication for emergent imaging or further invasive exams based on current clinical presentation and symptoms. I discussed home care instructions including alternating ice and heat, gentle stretching. Work note is provided for today. I recommend she contact her primary care physician for any persistent pain. She is comfortable with plan for discharge home. Return precautions are given. She verbalizes understanding. Ting Disclaimer: Ting Disclaimer: This electronic medical record was generated, in whole or in part, using a voice recognition dictation system. Departure Departure Impression: Primary Impression: Right low back pain Disposition: HOME / SELF CARE / HOMELESS Condition: STABLE Referrals: NO PCP (PCP) Patient Instructions: Back Exercises, Back Pain, Adult Additional Instructions: Use the medication as directed/as needed. Ice and heat may help as well. Gentle stretching may help. Return to the ER for any acute trauma or injury, numbness tingling or motor weakness, loss of bowel or bladder function, burning or pain with urination, fever of 100.4 or higher or any other concerns. Please contact your primary care physician for follow-up. Scripts Lidocaine (Lidocaine) 1 Each Adh..patch 1 EACH TP DAILY for pain, #10 PATCH Prov: PRIMITIVO CASTRO DO 12/30/20 Cyclobenzaprine Hcl (CYCLOBENZAPRINE HCL) 10 Mg Tablet 1 TAB PO BID for muscle spasm, #14 TAB Prov: PRIMITIVO CASTRO DO 12/30/20 PRIMITIVO CASTRO DO Dec 30, 2020 09:05
[2020-12-30] MEDS ORDERED: KETOROLAC 60 MG/2 ML VIAL. IM ONE (09:15)
[2020-12-30] MEDS ORDERED: LIDOCAINE (700MG/PATCH) PATCH. TD ONE (09:15)
== END 2020-12-30 10:04 | disposition home or self-care (01) ==
LOC: ER 08:12
DX: M54.50 Low back pain, unspecified (principal); K21.9 Gastro-esophageal reflux disease without esophagitis; F17.200 Nicotine dependence, unspecified, uncomplicated; Z90.89 Acquired absence of other organs; Z90.49 Acquired absence of other specified parts of digestive tract; Z98.51 Tubal ligation status
CPT/HCPCS: 96372; 99283; J1885